=== PATIENT | male | born 1975 | race Caucasian/White ===

== ENCOUNTER 2019-07-14 07:14 | Outpatient (CLI) | payer OTHER ==
[2019-07-14 14:36] LABS: #Basophils 0.1 thou/uL (0.0-0.2); #Eosinphils 0.7 thou/uL (0.0-0.7); #Lymphocytes 2.4 thou/uL (1.20-3.40); #Monocytes 0.7 thou/uL (0.11-0.59); #Neutrophils 4.2 thou/uL (1.40-6.50); %Basophils 1.3 % (0.0-1.0); %Lymphocytes 29.3 % (21.0-51.0); %Monocytes 8.1 % (0.0-10.0); %Neutrophils 52.3 % (42.0-75.0); Hemoglobin 14.5 g/dL (14.0-18.0); Mean Corpuscular HGB CONC 34.3 g/dL (32.0-36.0); Mean Corpuscular Hemoglobin 30.8 pg (27.0-31.0); Mean Corpuscular Volume 89.9 fL (78.0-98.0); Mean Platelet Volume 8.7 fL (7.4-10.4); Platelet Count 250 thou/uL (130-400); RBC Distribution Width 11.9 % (11.5-14.5)
[2019-07-14 14:54] LABS: Anion Gap 12 mmol/L (10-20); BUN (Urea Nitrogen) 18 mg/dL (8.9-20.6); Calc. Creatinine Clearance 0 mL/min (70-130); Calcium 9.2 mg/dL (7.8-10.44); Carbon Dioxide 24 mmol/L (22-29); Chloride 108 mmol/L (98-107); Estimated GFR-MDRD 60; Glucose 112 mg/dL (70-105); Sodium 140 mmol/L (136-145)
[2019-07-15 10:59] LABS: SARS-CoV-2 MS2 Positive; SARS-CoV-2 N Gene Negative; SARS-CoV-2 S Gene Negative; SARS-CoV-2 orf1ab Negative
== END 2019-07-14 07:15 | disposition home or self-care (01) ==
LOC: LABBT 07:14
PROVIDERS: ATTEND Specialist
DX: Z01.818 Encounter for other preprocedural examination (principal); Z11.59 Encounter for screening for other viral diseases; K40.20 Bilateral inguinal hernia, without obstruction or gangrene, not specified as recurrent
CPT/HCPCS: 80048; 85025; 87635; 93005; 93010; U0003

== ENCOUNTER 2019-07-17 08:01 | Day surgery (SDC) | payer OTHER ==
[2019-07-14 13:33] VITALS: BMI 30.9
[2019-07-17] MEDS ORDERED: Acetaminophen 500 MG TAB ONE (08:32)
[2019-07-17] MEDS ORDERED: Ketorolac Tromethamine 30 MG/ML VIAL ONE (08:32)
[2019-07-17] MEDS ORDERED: Gabapentin 300 MG CAP ONE (08:33)
--- NOTE | 2019-07-17 08:37 | HP ---
ADDENDUM: Addendum to History and Physical dated 04/21/2019, [facility] dictation #[id number]. The patient is scheduled for bilateral inguinal hernia repairs using robot laparoscopic approach. On exam, he was found to have bilateral inguinal hernias, right larger than the left. 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 Plan is to repair this with robotic approach, laparoscopic assisted using mesh. He understands the risks and benefits, consents. Please see recent history and physical, to which this is an addendum dictated 04/21/2019, for past history, which has not changed. ALLERGIES: NONE. PHYSICAL EXAMINATION: LUNGS: Clear to auscultation. CARDIAC: Regular rhythm without murmur or gallop. ABDOMEN: Soft, nontender. On standing Valsalva, he has bilateral inguinal hernias, right larger than left. ASSESSMENT AND PLAN: Bilateral inguinal hernias. PLAN: Mesh repair with laparoscopic robotic assisted. Risks of infection, bleeding, reoperation, recurrence, hernia were discussed. Questions answered. Job ID: [id number]
[2019-07-17] MEDS ORDERED: Lidocaine 1% w/Epinephrine 1:100K 20 ML VIAL ONE (09:00)
[2019-07-17] MEDS ORDERED: Bupivacaine 0.25% HCL 30 ML VIAL ONE (09:00)
[2019-07-17] MEDS ORDERED: Fentanyl 100 MCG/2 ML VIAL ONE ×2 (09:46→12:31)
[2019-07-17] MEDS ORDERED: PHENYLEPHRINE-NS 100 MCG/ML 10 ML SYRINGE ONE (13:31)
[2019-07-17] MEDS ORDERED: EPHEDRINE 25 MG/5 ML SYRINGE ONE (13:31)
[2019-07-17] MEDS ORDERED: Rocuronium Bromide 10 MG/ML (10ML VIAL) ONE (13:31)
[2019-07-17] MEDS ORDERED: PROPOFOL 200 MG/20 ML VIAL ONE (13:31)
[2019-07-17] MEDS ORDERED: Ondansetron PF 4 MG/2 ML Vial ONE (13:31)
[2019-07-17] MEDS ORDERED: Glycopyrrolate 0.2 MG/ML 5 ML SYRINGE ONE (13:31)
[2019-07-17] MEDS ORDERED: Dexamethasone 20 MG/5 ML VIAL ONE (13:31)
[2019-07-17] MEDS ORDERED: Lidocaine 1% PF 5 ML VIAL ONE (13:31)
[2019-07-17] MEDS ORDERED: HYDROcodone/Acetaminophen 5/325 mg Tablet ONE (13:50)
--- NOTE | 2019-07-17 17:14 | OP ---
DATE OF PROCEDURE: 07/17/2019 PREOPERATIVE DIAGNOSIS: Bilateral inguinal hernias. POSTOPERATIVE DIAGNOSIS: Bilateral inguinal hernias. PROCEDURE PERFORMED: Robot/laparoscopic mesh repair of bilateral indirect inguinal hernias. ANESTHESIA: General, local with 0.5% Marcaine with epinephrine, 30 mL used. A Paredes catheter placed in the beginning of procedure and removed at the end. DESCRIPTION OF PROCEDURE: The patient was taken to the operating room where under general anesthesia, Paredes catheter was placed in the beginning of procedure and removed at the end. Abdomen was clipped of hair, prepared with ChloraPrep, draped in routine fashion. The patient was placed in slight Trendelenburg position. Respecting his tattoos supraumbilical midline incision made. Pneumoperitoneum to 15 mmHg was obtained with Veress needle, replacing with a 12 port. Bilateral lateral and fascia erica incisions made supraumbilical. Again, respecting tattoos, placing an 8 mm port superior. The robot was docked, positioned and robot inguinal hernia repair undertaken. Bilateral indirect hernia sacs noted. Peritoneal flaps were created bilaterally in the pelvis from the anterior superior iliac spine towards the midline, dissecting peritoneal flaps and a hernia sac was freed from the cord structures bilaterally, identifying the Papo's ligament on the right and left side and dissected the lateral space, gaining good hemostasis. Hernia sac was dissected free within 8 cm of the cord structures. Good hemostasis noted. The mesh on the right and left side was positioned properly and secured to Papo ligament on each side with 2-0 Vicryl suture and to the anterior abdominal wall on each side just lateral to the inferior epigastric vessels. The mesh had a good lie. Peritoneum approximated with a continuous suture of 2-0 V-Loc suture continuous. Very large hernia sac on the right everted externally. Good hemostasis noted. All needles retrieved. Pneumoperitoneum reduced. All instruments were reviewed. All skin incisions were approximated with interrupted subdermal 4-0 Monocryl and Marks glue applied. Job ID: [id number]
== END 2019-07-17 14:40 | disposition home or self-care (01) ==
LOC: SDC 08:01
PROVIDERS: ATTEND Specialist
PROC: 0YUA4JZ Supplement Bilateral Inguinal Region with Synthetic Substitute, Percutaneous Endoscopic Approach (ICD-10-PCS; principal; 2019-07-17)
DX: K40.20 Bilateral inguinal hernia, without obstruction or gangrene, not specified as recurrent (principal); I10 Essential (primary) hypertension; J45.909 Unspecified asthma, uncomplicated; E66.9 Obesity, unspecified; F17.200 Nicotine dependence, unspecified, uncomplicated; Z68.30 Body mass index [BMI] 30.0-30.9, adult; Z79.899 Other long term (current) drug therapy
CPT/HCPCS: C1781; J0690; J1100; J1885; J2001; J2405; J2704; J3010; S0020

== ENCOUNTER 2019-10-16 06:14 | Day surgery (SDC) | payer OTHER ==
[2019-10-13 10:00] VITALS: BMI 29.4
--- NOTE | 2019-10-13 16:06 | HP ---
HISTORY OF PRESENT ILLNESS: Catrachito Boles is a 44-year-old male undergoing robotic bilateral inguinal hernia repair on 07/17/2019. He developed a seroma in his right groin. This has been followed, seemed to be improving, but more recently it has caused him to miss work because of some discomfort. He underwent a CAT scan of the pelvis confirming seroma, hematoma formation, right groin. There was no evidence of infection. He was noted to have a questionable cyst in left kidney and ultrasound suggested to evaluate the testicle. On exam, his testicles are normal. He has a seroma hematoma about 4 to 5 cm in diameter, right groin, is not reducible. Testicle is separate and normal. This does not vary in size. MEDICATIONS: 1. Proventil. 2. Truvada. 3. Tivicay. PAST MEDICAL HISTORY: HIV positive, asthma. PAST SURGICAL HISTORY: Amputation of right thumb, amputation of left toe, bilateral robotic inguinal hernia repair with mesh on 07/17/2019. SOCIAL HISTORY: Tobacco, None. Alcohol, none. PHYSICAL EXAMINATION: VITAL SIGNS: Blood pressure 139/79, heart rate 79, temperature 98.1 degrees. LUNGS: Clear to auscultation. CARDIAC: Regular rate and rhythm. No murmur or gallop. ABDOMEN: Soft, nontender. EXTREMITIES: Unremarkable. No ankle edema. : Testicles normal. Hernia repair is intact. Right groin reveals a 5 cm diameter seroma hematoma mass. This is not reducible, does not vary in size. ASSESSMENT AND PLAN: 1. Hematoma seroma postoperatively. This is bothersome to him. I have told that we can observe this and it may resolve with time. We talked about aspiration, but that is unlikely to be definitive. At this time, we will plan excision as an outpatient through a right groin incision. He understands risks and benefits, consents. 2. Obtain ultrasound of his testicles and left kidney suggested by pelvic CAT scan recently. Job ID: [id number]
[2019-10-16] MEDS ORDERED: Ketorolac Tromethamine 30 MG/ML VIAL ONE (07:04)
[2019-10-16] MEDS ORDERED: Acetaminophen 500 MG TAB ONE (07:04)
[2019-10-16] MEDS ORDERED: Lidocaine 1% w/Epinephrine 1:100K 20 ML VIAL ONE (07:47)
[2019-10-16] MEDS ORDERED: Bacitracin Zinc Ointment 30 gm TUBE ONE (07:47)
[2019-10-16] MEDS ORDERED: Bupivacaine PF 0.5% 30 ML VIAL ONE (07:47)
[2019-10-16] MEDS ORDERED: Fentanyl 100 MCG/2 ML VIAL ONE (08:24)
[2019-10-16] MEDS ORDERED: Midazolam HCl 2 mg/2 ml Vial ONE (08:24)
[2019-10-16] MEDS ORDERED: Lidocaine 1% PF 5 ML VIAL ONE (09:25)
[2019-10-16] MEDS ORDERED: PROPOFOL 200 MG/20 ML VIAL ONE (09:25)
[2019-10-16] MEDS ORDERED: EPHEDRINE 25 MG/5 ML SYRINGE ONE (09:25)
--- NOTE | 2019-10-16 13:14 | OP ---
DATE OF PROCEDURE: 10/16/2019 PREOPERATIVE DIAGNOSIS: Right groin seroma/hematoma status post a robot mesh repair of bilateral inguinal hernias. ANESTHESIA: General anesthesia and local with 0.5% Marcaine 30 mL, mixed with 1% Xylocaine with epinephrine 20 mL, total volume used. DESCRIPTION OF PROCEDURE: The patient was taken to the operating room where under general anesthesia, abdomen was clipped of hair, prepared with ChloraPrep and draped in routine fashion. Penis and scrotum also prepped. Incision was made in the right groin overlying the seroma/hematoma, carried down to skin, subcutaneous tissue, and fascia, dissecting the cremasteric muscles off the seroma/hematoma, dissecting free along with the pseudocapsule down to the base, which was amputated with all hematoma fluid evacuated. The seroma, pseudocapsule, and organized thrombus resected. Good hemostasis noted. Subcutaneous tissue was approximated with 3-0 Monocryl, skin with subdermal 4-0 Monocryl, and [place] glue applied. Local anesthetic was infiltrated in the skin and subcutaneous tissue about the operative site. Job ID: [id number]
== END 2019-10-16 11:10 | disposition home or self-care (01) ==
LOC: SDC 06:14
PROVIDERS: ATTEND Specialist
PROC: 0KCK0ZZ Extirpation of Matter from Right Abdomen Muscle, Open Approach (ICD-10-PCS; principal; 2019-10-16)
DX: M96.840 Postprocedural hematoma of a musculoskeletal structure following a musculoskeletal system procedure (principal); M96.842 Postprocedural seroma of a musculoskeletal structure following a musculoskeletal system procedure; J45.909 Unspecified asthma, uncomplicated; Z21 Asymptomatic human immunodeficiency virus [HIV] infection status; Z79.899 Other long term (current) drug therapy
CPT/HCPCS: 88304; J0690; J1885; J2250; J2704; J3010; S0020